=== PATIENT | female | born 1965 | race Caucasian/White ===

== ENCOUNTER 2022-03-24 12:39 | Outpatient (CLI) | payer BC, SELFPAY ==
--- NOTE | 2022-03-24 13:00 | MR_ITS ---
[address] [address] Phone:?[phone] Fax:?[phone] Referring Physician Information: Brian Bennett M.D. [id number] [facility] [facility] [address] Phone:?[phone] Fax:?[phone] Patient:Cain Walker D.O.B:?1965 Sex:?Female Phone:?[phone] [facility] MRN:?[id number] Exam Date:?03/24/2022 ? EXAM: MRI OF THE RIGHT KNEE CLINICAL INFORMATION: The patient is a 56-year-old with right knee pain. Evaluate for medial meniscal tear. PRIOR SURGERY: The patient has a history of prior surgery to the region. COMPARISON STUDIES: There are no prior studies available for comparison. TECHNICAL INFORMATION: Imaging was performed on a high-field, 1.5 Yi MR scanner. Axial proton-density and axial fat-suppressed T2 imaging of the right knee was performed in addition to coronal proton-density, T2, and STIR imaging. Sagittal proton-density and sagittal fat-suppressed T2 imaging was also produced. FINDINGS: Articular/Extraarticular collections: Effusion: Moderate. Popliteal cyst: Small to moderate, seen on sagittal series 6 images 26 and 24. Loose bodies: No well-defined intra-articular loose bodies are present. Subcutaneous and extraarticular soft tissues: Nonspecific subcutaneous soft tissue edema and/or hemorrhage can be seen along the anterior aspect of the knee on sagittal series 6 image 16. Osseous structures: Cortical irregularity can be seen along the articular surfaces of the medial femoral condyle and medial tibial plateau with broad-based areas of subcortical edema along the articular surfaces. The findings are in keeping with the chondromalacia and chondral loss described below. Spurring along the medial margins of the medial joint compartment can be seen and the findings are in keeping with osteoarthritic change. Additional mild reactive bony changes along the articular surfaces of the patella can be seen, also in keeping with chondromalacia and chondral loss described below. No other bony abnormalities about the knee are identified. Ligamentous structures: ACL: Intact and normal in appearance. PCL: Intact and normal in appearance. MCL: Intact and normal in appearance. LCL: Intact and normal in appearance. Posterolateral corner: Intact and normal in appearance. Posteromedial corner: No posteromedial corner soft tissue injury. Semimembranosus and pes anserine tendons demonstrate no tendinopathy or associated bursitis. Extensor mechanism/Patellar retinacular structures: Patellar tendon: Intact, without tendinopathy. Quadriceps tendon: Intact, without tendinopathy. Retinacula: The medial and lateral retinacula are intact. The medial patellofemoral ligament is intact. Medial compartment: Medial meniscus: Degeneration, fraying, and irregularity of the posterior horn of the medial meniscus can be seen. No definite areas of more well-defined tearing of the medial meniscus are noted. There is no evidence for parameniscal cyst formation. No meniscocapsular separation injury is present. Medial femoral condyle: Full-thickness and near full-thickness chondral loss can be seen along the weightbearing surfaces of the medial femoral condyle on sagittal series 5 image 22 and on coronal series 7 image 18. The area of chondral loss measures 32 mm in anteroposterior dimension and 25 mm in mediolateral dimension. Underlying bony changes are seen. Medial tibial plateau: Full-thickness and near full-thickness chondral loss can be seen along the medial and anterior weightbearing surfaces of the medial tibial plateau on coronal series 7 image 18 and on sagittal series 5 image 23. The area measures 25 mm in anteroposterior dimension and 18 mm in mediolateral dimension. Underlying bony changes are present. Lateral compartment: Lateral meniscus: No evidence for lateral meniscal tearing is present. No evidence for parameniscal cyst formation can be seen. Lateral femoral condyle: No chondromalacia, chondral defect, or osteochondral abnormality. Lateral tibial plateau: No chondromalacia, chondral defect, or osteochondral abnormality. Patellofemoral compartment: Patella: Full-thickness and near full-thickness chondral loss can be seen involving the patellar apex and medial patellar facet on axial series 3 image 10, measuring 18 mm in greatest dimension. Mild underlying bony changes are seen. No chondral injuries along the lateral patellar facet are noted. Trochlea: Chondromalacia and chondral thinning along the articular surfaces of the femoral trochlea can be seen. Neurovascular: No definite neurovascular abnormalities are seen. CONCLUSION: 1. Osteoarthritic changes of the medial joint compartment with full-thickness and near full-thickness chondral loss and underlying bony change. Additional chondromalacia and chondral loss along the articular surfaces of the patellofemoral articulation can be seen. 2. Degeneration and fraying of the posterior horn of the medial meniscus. No well-defined medial or lateral meniscal tearing is identified. 3. The cruciate and collateral ligaments appear intact. 4. Moderate knee joint effusion and [id number] popliteal cyst. [facility] Electronically signed on 03/24/2022 4:11:00 PM by Armin Samuels M.D.
== END 2022-03-24 12:40 | disposition home or self-care (01) ==
LOC: MRI 12:40
PROVIDERS: Visit Provider Orthopaedic Surgery Sports Medicine
DX: M25.561 Pain in right knee (principal); M17.11 Unilateral primary osteoarthritis, right knee; M22.41 Chondromalacia patellae, right knee; M25.461 Effusion, right knee; M71.21 Synovial cyst of popliteal space [Baker], right knee
CPT/HCPCS: 73721

== ENCOUNTER 2022-04-13 07:06 | Day surgery (SDC) | payer BC, SELFPAY ==
[2022-04-13] VITALS (26 sets, daily range): BP systolic 99–187; BP diastolic 57–120; PULSE 49–79; RESP 16–20; TEMP 35.8–37; O2SAT 92–100; BMI 38.6
[2022-04-13] MEDS: LACTATED RINGERS 1000 ML 1,000 ML 100 ML IV (08:30)
[2022-04-13] MEDS: ACETAMINOPHEN 500 MG TABLET 1000 MG PO ×2 (08:40→17:43)
[2022-04-13] MEDS: CELECOXIB 200 MG CAPSULE PO ×2 (08:40→21:05)
[2022-04-13] MEDS: OXYCODONE (CR) 10 MG TAB.ER.12H PO (08:40)
[2022-04-13] MEDS: ETHYL CHLORIDE 1 APPLICATION 1 APPLIC TOPICAL (08:42)
[2022-04-13] MEDS: SODIUM CHLORIDE 0.9 % (FLUSH) 10 ML SYRINGE IVF (08:42)
[2022-04-13] MEDS: MIDAZOLAM HCL 1 MG/ML inj IVP (08:48)
[2022-04-13] MEDS: fentaNYL 100 MCG/2 ML inj IVP (08:48)
--- NOTE | 2022-04-13 08:59 | SUR.PREOP ---
TIME?OUT:?0845, right knee PT/RN/MDA?VERIFICATION?OF?SURGICAL?SITE,?PROCEDURE,?AND?CONSENT OBTAINED?PRIOR?TO?INVASIVE?PROCEDURE.
--- NOTE | 2022-04-13 09:00 | W.PM.NB ---
Nerve Block Nerve Block Time Seen by Provider: 09:00 Date Seen: 04/13/22 Type of block requested by surgeon for post-operative analgesia: adductor canal Time out performed: Yes Verification of patient name: Yes Verification of date of : Yes Site marking: site marked Name of person performing procedure: Ayo Oconnell, if any: [place] Continuous monitoring Was continuous monitoring of O2 sat, B/P, registered nurse cardiac, recorded every 15 minutes?: Yes Procedure Checklist: sterile prep, needles and gloves Ultrasound guided. Images saved: Yes Medications given in 5ml increments after negative aspiration: Ropivicaine %: 0.5 mL: 20 Needle gauge: 20 Decadron (mg): 10 Precedex (mcg): 25 Patient tolerated procedure well: Yes Additional comments: Needle noted adjacent to nerve Block Charges Block Charge (with Pro Fee): Femoral Nerve Use of Ultrasound Machine for Block: Yes- US Guidance/pain block
--- NOTE | 2022-04-13 09:00 | W.PM.NB ---
Nerve Block Nerve Block Time Seen by Provider: 09:00 Date Seen: 04/13/22 Type of block requested by surgeon for post-operative analgesia: geniculars Side: right Time out performed: Yes Verification of patient name: Yes Verification of date of : Yes Site marking: site marked Name of person performing procedure: Ayo Continuous monitoring Was continuous monitoring of O2 sat, B/P, cardiac cath technician, recorded every 15 minutes?: Yes Procedure Checklist: sterile prep, needles and gloves Medications given in 5ml increments after negative aspiration: Ropivicaine %: 0.5 mL: 9 Needle gauge: 25 Patient tolerated procedure well: Yes Block Charges Block Charge (with Pro Fee): Genicular Nerve Block Use of Ultrasound Machine for Block: No
--- NOTE | 2022-04-13 09:37 | CRLHL7_ITS ---
For Patients: As a result of the Cures Act, medical imaging exams and procedure reports are released immediately into your electronic medical record. You may view this report before your referring provider. If you have questions, please contact your health care provider. INDICATION: Postoperative total knee arthroplasty, Post operative total knee arthroplasty TECHNIQUE: Knee radiograph 2 views right COMPARISON: None FINDINGS: Bone: No acute fractures or aggressive bone lesions are identified. Joint: The patient is status post a total knee arthroplasty with patellar resurfacing. No significant knee effusion is seen. Soft tissue: Anterior skin, subcutaneous gas and joint gas are present from recent surgery. No radiopaque foreign bodies are seen. IMPRESSION: 1. There is an unremarkable postoperative appearance of the knee arthroplasty. Dictated by: Orion Marquez MD @ 04/13/2022 13:43:43 (Electronically Signed)
[2022-04-13] MEDS: TRANEXAMIC ACID 100 MG/ML INJ 1000 MG IV (10:19)
[2022-04-13] MEDS: CEFAZOLIN 2 GM in 0.9 % SODIUM CHLORIDE Mini-bag 100 ML IVPB ×2 (10:21→17:04)
--- NOTE | 2022-04-13 10:46 | SUR.OPER ---
PATIENT QUESTIONS ANSWERED SATISFACTORILY PREOPERATIVELY.? PATIENT BROUGHT TO OR #3 PER CART FROM BLOCK ROOM.? Patient positioned supine on OR #3 bed.? The perioperative?team supported arms bilaterally on arm boards.? Final approval of positioning by surgeon.?
--- NOTE | 2022-04-13 11:33 | P.ORPRC_ITS ---
Procedure Note Date of procedure: 04/13/22 Procedure: PREOPERATIVE DIAGNOSIS: 1. Right knee osteoarthritis, primary, severe POSTOPERATIVE DIAGNOSIS: 1. Right knee osteoarthritis, primary, severe PROCEDURE: 1. Right total knee arthroplasty-modifier 22 (33% added time/difficulty for this case due to patient's focused elevated body habitus around her lower extremities). While her BMI is 38.6 (less than morbid obesity), it is primarily focused from her waist down. The size of her knee would otherwise be consistent with someone who has BMI of 45 or greater. This added time, required deeper retractors, and more assistance to help hold retractors. SURGEON: Brian Bennett MD. KITCHEN OPERATOR: Ahsan FLORES - Of note, a skilled family law legal assistant was critical for this case to aid in patient positioning, tissue retraction, limb manipulation/positioning, and closure. ANESTHESIA: Spinal anesthetic IMPLANTS: DePuy J&J all cemented TKA - Attune PS femur size 5 regular, size for tibia, 5 poly spacer, 35 mm patella TOURNIQUET: 105 minutes at 300 torr EBL: 50 ml COMPLICATIONS: None evident INDICATIONS: The patient is a pleasant 56-year-old female who has experienced severe right knee pain and difficulty bearing weight. Workup included x-rays which revealed severe osteoarthrosis in the knee. Given the deformity, the dysfunction, and the pain, as well as the failure of nonoperative management, recommendation was made for surgery. FINDINGS: Large effusion upon entering the joint. Full-thickness chondral loss broadly throughout the medial compartment and significant through the patellofemoral compartment. While the lateral compartment had lesser chondromalacia, it was still significant. Degenerative meniscal pathology noted as well. No appreciable loose bodies. DESCRIPTION OF PROCEDURE: Following a thorough discussion of risks, benefits, and alternatives consent was obtained and the right knee was marked. The patient was brought to the operating room and placed supine on the operating table. Induction of anesthesia was undertaken. 2 g IV Ancef and 1 g tranexamic acid was administered within 1 hr of incision preoperatively. Proper time-out was performed identifying proper patient, site, procedure. The operative extremity was prepped and draped in the appropriate sterile fashion using ChloraPrep after the patient was positioned supine with all bony prominences well padded. A longitudinal, anterior, midline skin incision was made starting approximately 3cm proximal to the superior pole of the patella and advanced distal to the tibial tubercle. A median parapatellar arthrotomy was created. A medial subperiosteal sleeve was created with knife, richmond elevator and curved osteotome. The retropatellar fatpad was resected and the synovium in the suprapatellar pouch excised to visualize the anterior femoral cortex. Femoral preparation was performed via an intramedullary guide. Step drill allowed access into the femoral canal. The distal cutting guide was placed with 5? of valgus and 10 mm cut on the distal femur. Femur was sized using a posterior referencing guide in 3? of external rotation. This found have a best fit with the sizing noted above. The 4 in 1 cutting block was then placed, and the distal femur shaped accordingly. The box cut was then created and the trial implant inserted to confirm appropriate fit. We turned our attention to the proximal tibia. Extramedullary guide was utilized for cutting with the goal of being 90 degree cut from the mechanical axis of the tibia in the varus/valgus plane utilizing tibial crest as the primary alignment. Initially a 2 mm resection was performed from the medial tibial plateau. Ultimately, balancing was achieved in both flexion and extension in both varus and valgus. The knee was able to achieve full extension as well comfortably. The patella was initially measured and found have a thickness of 22 mm. It was resected back to approximately 14 mm. It was sized to be a best fit with as noted above. This was drilled, trial placed. All tri als were placed and found to have an excellent stability and balance. At this stage, trial implants were removed, the knee was thoroughly irrigated with normal saline, and the cement was mixed. After irrigation, the knee was thoroughly dried, and cement placed, with the real tibial and femoral implants placed along with the patella. Trial poly spacer was placed and confirmed to have excellent range of motion and full extension, and the real poly spacer opened and inserted. All extra cement was removed, and a 3 min Betadine soak performed. Finally, a final irrigation round with normal saline was performed. Closure performed with 0 Vicryl and #0 Stratafix for the quad tendon/retinaculum. 2-0 Vicryl for the subcutaneous and 4-0 Stratafix for subcuticular closure. Dressings were applied and the patient was awoken from anesthesia after the tourniquet deflated and transferred the PACU in stable condition. A skilled family law legal assistant was critical for this case to aid in patient positioning, ti ssue retraction, bone exposure, limb manipulation/positioning, patient safety, and closure. Again, this case is worthy of a modifier 22 (33% added time/difficulty for this case due to patient's focused elevated body habitus around her lower extremities). While her BMI is 38.6 (less than morbid obesity), it is primarily focused from her waist down. The size of her knee would otherwise be consistent with someone who has BMI of 45 or greater. This added time, required deeper retractors, and more assistance to help hold retractors. PLAN: 1. Weight bear as tolerated operative extremity. 2. 23 hr perioperative antibiotics. 3. Ice. 4. PT/OT consults for ambulation assistance/mobility education. 5. Social work consult for discharge planning. 6. DVT prophylaxis with at SCDs, Alo Aranae, and aspirin twice daily.
--- NOTE | 2022-04-13 12:14 | W.ANESCHARGE ---
Anesthesia Charges Start Date/Time Anesthesia Start Date: 04/13/22 Anesthesia Start Time: 10:15 Stop Date/Time Anesthesia Stop Date: 04/13/22 Anesthesia Stop Time: 12:11 Summary Emergency: No
--- NOTE | 2022-04-13 12:46 | W.ANESCHARGE ---
Anesthesia Charges Start Date/Time Anesthesia Start Date: 04/13/22 Anesthesia Start Time: 10:15 Stop Date/Time Anesthesia Stop Date: 04/13/22 Anesthesia Stop Time: 12:11 Summary Emergency: No
--- NOTE | 2022-04-13 14:42 | PM.IMCN1 ---
Date of Consult Consult date: 04/13/22 Requesting Physician: Orthopedics Primary Care Provider: Not a Local Provider Consult Narrative Narrative: Faby Walker is a 56 year old female underwent an elective right knee arthroplasty by Dr. Bennett today for severe osteoarthritis. She is doing well postoperatively, and is noting some increase in pain in the superior right knee as the block wears off. She has no other complaints. Her , Keith, is in the room with her. Review of Systems Status of ROS: Reports: 6 or more systems reviewed and unremarkable except as noted in History and below PFSH [facility] Medical History (Updated 04/13/22 @ 15:45 by Catherine Younger MD) Acute medial meniscal injury of right knee Acute medial meniscus tear of right knee Benign brain tumor Contusion of bone Degenerative arthritis of lumbar spine Normal ECG Osteoarthritis of left hip Osteoarthritis of right knee Pruritic rash Surgical History (Updated 04/13/22 @ 15:15 by Catherine Younger MD) History of appendectomy History of foot surgery History of knee surgery Hx of colonoscopy Status post total right knee replacement Family History (Updated 04/13/22 @ 15:11 by Catherine Younger MD) Father Esophageal cancer Brother Cerebral malaria Maternal Grandmother Glaucoma Maternal Grandfather Lung cancer Paternal Grandmother Stomach cancer Paternal Grandfather Esophageal cancer Social History (Updated 04/13/22 @ 15:13 by Catherine Younger MD) Narrative: . computer lab para professional. Lifelong nonsmoker. Rare EtOH - twice a year. Denies recreational drug use. Smoking Status: Never smoker Do you use any of these nicotine containing products: None How often do you have a drink containing alcohol: never AUDIT-C Alcohol total score: 0 Non-prescribed substance use: denies use Caffeine: Yes (coffee, 3 cups/day) Meds Home Medications and Allergies Home Medications Medication Instructions Recorded Confirmed Type cholecalciferol (vitamin D3) 25 25 mcg PO DAILY 04/10/22 04/13/22 History mcg (1,000 unit) capsule loratadine 10 mg tablet (Claritin) 10 mg PO DAILY 04/10/22 04/13/22 History magnesium oxide 400 mg PO DAILY 04/10/22 04/13/22 History multivitamin (Daily Multi-Vitamin 1 tab PO DAILY 04/10/22 04/13/22 History tablet) Allergies Allergy/AdvReac Type Severity Reaction Status Date / Time morphine Allergy Hives Verified 04/13/22 07:45 Exam Narrative: Exam Narrative: General: No acute distress. Awake alert oriented x3. Obese. HEENT: Normocephalic atraumatic, pupils equally round and reactive to light and accommodation. Oropharynx clear. Mucous membranes are moist. No JVD. Cardiovascular: Regular rate and rhythm. No murmurs, gallops, or rubs. Chest: No increased work of breathing. Clear to auscultation bilaterally. No crackles or wheezes. Abdomen: Bowel sounds present. Soft, nondistended, nontender. No hepatosplenomegaly or masses. Extremities: Right knee bandage is clean, dry, and intact. There is a mild amount of ecchymosis around the wound visible from under the edges of the bandage. No edema, no cyanosis or clubbing. Skin: No jaundice, no pallor, no rashes. Const: Vital Signs, click to edit/add: Vital Signs - 24 hr 04/13/22 07:54 04/13/22 08:49 04/13/22 09:05 Temperature 98.4 F Pulse Rate 53 L 51 L 57 L Pulse Rate [Right Pulse Oximeter] Respiratory Rate 20 20 20 Blood Pressure 122/75 134/83 125/60 Blood Pressure [Le ft Arm] Pulse Oximetry 100 100 95 Oxygen Delivery Me thod Room Air Nasal Cannula Nasal Cannula Oxygen Flow Rate 3 3 04/13/22 12:10 04/13/22 12:15 04/13/22 12:20 Temperature 97.2 F L Pulse Rate 65 56 L 50 L Pulse Rate [Right Pulse Oximeter] Respiratory Rate 16 16 16 Blood Pressure 99/64 100/91 H 100/87 Blood Pressure [Le ft Arm] Pulse Oximetry 96 96 96 Oxygen Delivery Me thod Room Air Room Air Room Air Oxygen Flow Rate 3 04/13/22 12:25 04/13/22 12:30 04/13/22 12:35 Temperature Pulse Rate 60 55 L 55 L Pulse Rate [Right Pulse Oximeter] Respiratory Rate 16 16 16 Blood Pressure 101/88 99/77 101/79 Blood Pressure [Le ft Arm] Pulse Oximetry 96 96 96 Oxygen Delivery Me thod Room Air Room Air Room Air Oxygen Flow Rate 04/13/22 12:40 04/13/22 12:45 04/13/22 13:10 Temperature 97.3 F L 96.7 F L Pulse Rate 50 L 49 L 56 L Pulse Rate [Right Pulse Oximeter] Respiratory Rate 16 16 Blood Pressure 110/79 120/75 Blood Pressure [Le ft Arm] 122/89 Pulse Oximetry 96 97 Oxygen Delivery Me thod Room Air Room Air Room Air Oxygen Flow Rate 04/13/22 13:17 04/13/22 13:30 04/13/22 13:50 Temperature 96.7 F L 97.1 F L 96.5 F L Pulse Rate Pulse Rate [Right Pulse Oximeter] 55 L 57 L 58 L Respiratory Rate 16 16 16 Blood Pressure Blood Pressure [Le ft Arm] 109/95 H 118/76 107/60 Pulse Oximetry 96 98 97 Oxygen Delivery Me thod Room Air Room Air Room Air Oxygen Flow Rate 04/13/22 14:00 04/13/22 14:30 Temperature 96.6 F L 96.6 F L Pulse Rate Pulse Rate [Right Pulse Oximeter] 55 L 57 L Respiratory Rate 16 16 Blood Pressure Blood Pressure [Le ft Arm] 133/76 139/89 Pulse Oximetry 98 99 Oxygen Delivery Me thod Room Air Room Air Oxygen Flow Rate 96.9 Imaging XR - knee: Attestation: I have reviewed the pertinent imaging results. Radiologist's impression: Ordering Physician: Brian Bennett M.D. Date of Service: 04/13/22 Procedure(s): XR knee RT 2V Accession Number(s): [id number] cc: Brian Bennett M.D.; Provider,Not a Local ~ For Patients: As a result of the Cures Act, medical imaging exams and procedure reports are released immediately into your electronic medical record. You may view this report before your referring provider. If you have questions, please contact your health care provider. INDICATION: Postoperative total knee arthroplasty, Post operative total knee arthroplasty TECHNIQUE: Knee radiograph 2 views right COMPARISON: None FINDINGS: Bone: No acute fractures or aggressive bone lesions are identified. Joint: The patient is status post a total knee arthroplasty with patellar resurfacing. No significant knee effusion is seen. Soft tissue: Anterior skin, subcutaneous gas and joint gas are present from recent surgery. No radiopaque foreign bodies are seen. IMPRESSION: 1. There is an unremarkable postoperative appearance of the knee arthroplasty. Dictated by: Orion Marquez MD @ 04/13/2022 13:43:43 (Electronically Signed) Assessment and Plan Assessment and plan (1) Osteoarthritis of right knee: Problem comment: Severe medial and patellofemoral compartment, mild-moderate lateral compartment Status: Acute (2) Status post total right knee replacement: Problem comment: 04/13/2022 Dr. Bennett Status: Acute Assessment and Plan: Doing well. Cares per ortho. Oral pain medications. Anticipate home with tomorrow morning after therapies. Plan VTE prophylaxis with BID aspirin, TEDs hose, and SCDs.
[2022-04-13] MEDS: OXYCODONE 5 MG TABLET PO ×3 (15:23→19:41)
[2022-04-13] MEDS: HYDROmorphone 0.5 mg/0.5 ml inj IVP (16:08)
[2022-04-13] MEDS: ONDANSETRON 2 MG/ML inj 4 MG IVP (16:13)
--- NOTE | 2022-04-13 19:31 | PC.NURSE ---
End of Shift: Patient pleasant and cooperative. Patient vitally stable, lung clear, BS WNL, IV SL and intact. Patient 1 assist, walker, gb. Patient has rated pain at most 8/10, dilauded 0.5 mg given once, and 10 mg of oxy given x2. Patient did experience some nausea, zophran given once. Right knee wound C/D/I. Crycuff and teds applied. Patient tolerating regular diet and urinated 600.
[2022-04-13] MEDS: ASPIRIN 81 MG TABLET EC PO (21:05)
[2022-04-14] MEDS: OXYCODONE 5 MG TABLET PO ×3 (00:04→10:02)
[2022-04-14] MEDS: CEFAZOLIN 2 GM in 0.9 % SODIUM CHLORIDE Mini-bag 100 ML IVPB ×2 (00:05→08:49)
[2022-04-14] MEDS: ACETAMINOPHEN 500 MG TABLET 1000 MG PO ×3 (00:05→12:04)
[2022-04-14 03:00] VITALS: BP 153/74; PULSE 78; RESP 16; TEMP 36.9; O2SAT 96
[2022-04-14 06:49] LABS: Basophils Percent Auto 0.1 % (0.0-3.0); Hematocrit 33.8 % (33.0-51.0); Hemoglobin* 11.2 gm/dL (12.0-16.0); Immature Granulocytes Abs Auto 0.03 K/uL (0.00-0.30); Lymphocytes Percent Auto 16.1 % (20-44); Mean Corpuscular HGB Conc 33 gm/dL (32-36); Mean Corpuscular Hemoglobin 31 pg (26-34); Mean Corpuscular Volume 95 fL (80-100); Monocytes Percent Auto 5.7 % (0.0-11.0); Neutrophils Percent Auto 77.9 % (42.0-72.0); Platelet Count* 354 K/uL (140-440); RDW Coefficient of Variation % 13.5 % (11.5-15.5); Red Blood Count 3.57 m/uL (4.00-5.20); White Blood Count* 13.24 K/uL (4.50-11.00)
[2022-04-14 06:56] LABS: Slide Review Reflex No
[2022-04-14 07:00] VITALS: BP 145/79; PULSE 78; RESP 18; TEMP 36.8; O2SAT 97
[2022-04-14 07:06] LABS: Potassium* 4.3 mmol/L (3.6-5.1); Sodium* 135 mmol/L (135-149)
[2022-04-14 07:09] LABS: Blood Urea Nitrogen* 17 mg/dL (7-30); Creatinine* 0.7 mg/dL (0.5-1.5); Est. Creatinine Clearance* 79.79; Estimated Glomerular Filt Rate 101 ml/min
--- NOTE | 2022-04-14 08:38 | PM.ORPN ---
Subjective Subjective Date Seen: 04/14/22 Principal diagnosis: Status postop day 1 right total knee arthroplasty Interval history: Patient reports doing well. No acute events over night. Reports some mild nausea without vomiting. Reports and itch over the wound. Pain managed with scheduled /PRN medications and ice. DVT prophylaxis 81 mg aspirin by mouth twice daily, bilateral knee high Alo stockings, and SCDs. Was experiencing some lightheadedness medially after surgery when up, but this has since resolved when going to the bathroom. Denies fevers, chills, aches, N/V, CP, SOB/HORAN, tachycardia. Ortho Exam Narrative Exam Narrative: -Patient appears comfortable; no apparent acute distress -Alert and oriented times 3 -Operative knee moderately swollen; soft tissues supple; no ecchymosis; no erythematous streaking Warmth appropriate -Surgical dressing clean, dry, intact; no drainage -Bilateral calfs soft; no significant swelling, edema, tenderness, erythema, discoloration, warmth, or palpable cords -2+ DP/PT pulses, intact dermatomes and myotomes distally (5/5 strength) Const Vital Signs, click to edit/add: Vital Signs - 24 hr 04/13/22 08:49 04/13/22 09:05 04/13/22 12:10 Temperature 97.2 F L Pulse Rate 51 L 57 L 65 Pulse Rate [Right Pulse Oximeter] Respiratory Rate 20 20 16 Blood Pressure 134/83 125/60 99/64 Blood Pressure [Left Arm] Blood Pressure [Right Arm] Pulse Oximetry 100 95 96 Oxygen Delivery Method Nasal Cannula Nasal Cannula Room Air Oxygen Flow Rate 3 3 04/13/22 12:15 04/13/22 12:20 04/13/22 12:25 Temperature Pulse Rate 56 L 50 L 60 Pulse Rate [Right Pulse Oximeter] Respiratory Rate 16 16 16 Blood Pressure 100/91 H 100/87 101/88 Blood Pressure [Left Arm] Blood Pressure [Right Arm] Pulse Oximetry 96 96 96 Oxygen Delivery Method Room Air Room Air Room Air Oxygen Flow Rate 3 04/13/22 12:30 04/13/22 12:35 04/13/22 12:40 Temperature 97.3 F L Pulse Rate 55 L 55 L 50 L Pulse Rate [Right Pulse Oximeter] Respiratory Rate 16 16 16 Blood Pressure 99/77 101/79 110/79 Blood Pressure [Left Arm] Blood Pressure [Right Arm] Pulse Oximetry 96 96 96 Oxygen Delivery Method Room Air Room Air Room Air Oxygen Flow Rate 04/13/22 12:45 04/13/22 13:10 04/13/22 13:17 Temperature 96.7 F L 96.7 F L Pulse Rate 49 L 56 L Pulse Rate [Right Pulse Oximeter] 55 L Respiratory Rate 16 16 Blood Pressure 120/75 Blood Pressure [Left Arm] 122/89 109/95 H Blood Pressure [Right Arm] Pulse Oximetry 97 96 Oxygen Delivery Method Room Air Room Air Room Air Oxygen Flow Rate 04/13/22 13:30 04/13/22 13:50 04/13/22 14:00 Temperature 97.1 F L 96.5 F L 96.6 F L Pulse Rate Pulse Rate [Right Pulse Oximeter] 57 L 58 L 55 L Respiratory Rate 16 16 16 Blood Pressure Blood Pressure [Left Arm] 118/76 107/60 133/76 Blood Pressure [Right Arm] Pulse Oximetry 98 97 98 Oxygen Delivery Method Room Air Room Air Room Air Oxygen Flow Rate 04/13/22 14:30 04/13/22 15:26 04/13/22 16:00 Temperature 96.6 F L 97.5 F L 97.7 F Pulse Rate Pulse Rate [Right Pulse Oximeter] 57 L 71 57 L Respiratory Rate 16 16 16 Blood Pressure Blood Pressure [Left Arm] 139/89 143/57 H 153/74 H Blood Pressure [Right Arm] Pulse Oximetry 99 98 92 Oxygen Delivery Method Room Air Room Air Room Air Oxygen Flow Rate 96.9 04/13/22 16:47 04/13/22 17:00 04/13/22 18:00 Temperature 98.3 F 98.6 F Pulse Rate Pulse Rate [Right Pulse Oximeter] 56 L 73 Respiratory Rate 16 16 16 Blood Pressure Blood Pressure [Left Arm] Blood Pressure [Right Arm] 153/101 H 182/120 H Pulse Oximetry 96 95 Oxygen Delivery Method Room Air Room Air Oxygen Flow Rate 04/13/22 19:00 04/13/22 19:45 04/13/22 22:43 Temperature 98.1 F 98.1 F Pulse Rate Pulse Rate [Right Pulse Oximeter] 73 67 Respiratory Rate 16 16 16 Blood Pressure Blood Pressure [Left Arm] 156/74 H Blood Pressure [Right Arm] 187/87 H Pulse Oximetry 95 95 Oxygen Delivery Method Room Air Room Air Oxygen Flow Rate 04/13/22 23:00 04/14/22 03:00 04/14/22 07:00 Temperature 98.3 F 98.4 F Pulse Rate Pulse Rate [Right Pulse Oximeter] 79 78 78 Respiratory Rate 16 16 18 Blood Pressure Blood Pressure [Left Arm] Blood Pressure [Right Arm] 153/80 H 153/74 H Pulse Oximetry 95 96 Oxygen Delivery Method Room Air Room Air Oxygen Flow Rate 04/14/22 07:00 Temperature 98.3 F Pulse Rate Pulse Rate [Right Pulse Oximeter] 78 Respiratory Rate 18 Blood Pressure Blood Pressure [Left Arm] Blood Pressure [Right Arm] 145/79 H Pulse Oximetry 97 Oxygen Delivery Method Room Air Oxygen Flow Rate Assessment and Plan Assessment and plan (1) Osteoarthritis of right knee: Problem details: Severe medial and patellofemoral compartment, mild-moderate lateral compartment Status: Acute (2) Status post total right knee replacement: Problem details: 04/13/2022 Dr. Bennett Status: Acute Plan - Complete 23 hour perioperative antibiotics. - PT/OT consult for education and assistance. - Social work consult for discharge planning - Prescribed analgesics as needed - DVT prophylaxis: 81 mg aspirin by mouth twice daily, bilateral knee high Alo Hose stockings and SCDs - Anticipation is for discharge to home with spouse 04/14/2022 once patient remains medically stable, pain is controlled, and they are safe with mobilization.
--- NOTE | 2022-04-14 08:41 | PM.DS1 ---
DS: Providers Provider Date Seen: 04/14/22 Date of admission: med/surg recovery 04/13/22 Primary care physician: Not a Local Provider Consults: 04/13/22 12:55 Consult to Occupational Therapy [CONS] Routine Comment: Reason(s) for OT Consult:: ADLs Prior to Discharge Any Restrictions?:: See Comment Comment: See nursing activity order for any restrictions. Consult to Physical Therapy [CONS] Routine Comment: Ambulate in the [place] today. Reason(s) for PT Consult:: TKA TX Protocol POD#0 Any Restrictions?:: See Comment Comment: See nursing activity order for any restrictions. Consult to Physician [CONS] Routine Comment: Consulting Provider: Hospitalists Has provider been notified: No Consult to Bench Tool Maker [CONS] Routine Comment: Reason for Consult:: Discharge Planning Needs Attending Physician on discharge: Brian Bennett MD Date of Discharge: 04/14/22 DS: Diagnosis Discharge Diagnosis (1) Osteoarthritis of right knee: Status: Acute Problem details: Severe medial and patellofemoral compartment, mild-moderate lateral compartment (2) Status post total right knee replacement: Status: Acute Problem details: 04/13/2022 Dr. Bennett DS: Summary Hospital Course Hospital Course: The patient has a history of right knee osteoarthritis, primary, severe. After appropriate preoperative evaluation, the patient underwent right total knee arthroplasty. Postoperatively given anticoagulation for deep vein thrombosis prophylaxis. They progressed to PT/OT and were felt ready and prepared for discharged to home with appropriate pain medication and anticoagulation medications. Status at Discharge Functional status at discharge: uses cane/walker Overall status at discharge: patient is progressing back to baseline Time Spent with Patient Time attestation: Total time spent providing and/or coordinating discharge services: Time spent: Less than 30 minutes Exam Const: Vital Signs, click to edit/add: Vital Signs - 24 hr 04/13/22 08:49 04/13/22 09:05 04/13/22 12:10 Temperature 97.2 F L Pulse Rate 51 L 57 L 65 Pulse Rate [Right Pulse Oximeter] Respiratory Rate 20 20 16 Blood Pressure 134/83 125/60 99/64 Blood Pressure [Le ft Arm] Blood Pressure [Ri ght Arm] Pulse Oximetry 100 95 96 Oxygen Delivery Me thod Nasal Cannula Nasal Cannula Room Air Oxygen Flow Rate 3 3 04/13/22 12:15 04/13/22 12:20 04/13/22 12:25 Temperature Pulse Rate 56 L 50 L 60 Pulse Rate [Right Pulse Oximeter] Respiratory Rate 16 16 16 Blood Pressure 100/91 H 100/87 101/88 Blood Pressure [Le ft Arm] Blood Pressure [Ri ght Arm] Pulse Oximetry 96 96 96 Oxygen Delivery Me thod Room Air Room Air Room Air Oxygen Flow Rate 3 04/13/22 12:30 04/13/22 12:35 04/13/22 12:40 Temperature 97.3 F L Pulse Rate 55 L 55 L 50 L Pulse Rate [Right Pulse Oximeter] Respiratory Rate 16 16 16 Blood Pressure 99/77 101/79 110/79 Blood Pressure [Le ft Arm] Blood Pressure [Ri ght Arm] Pulse Oximetry 96 96 96 Oxygen Delivery Me thod Room Air Room Air Room Air Oxygen Flow Rate 04/13/22 12:45 04/13/22 13:10 04/13/22 13:17 Temperature 96.7 F L 96.7 F L Pulse Rate 49 L 56 L Pulse Rate [Right Pulse Oximeter] 55 L Respiratory Rate 16 16 Blood Pressure 120/75 Blood Pressure [Le ft Arm] 122/89 109/95 H Blood Pressure [Ri ght Arm] Pulse Oximetry 97 96 Oxygen Delivery Me thod Room Air Room Air Room Air Oxygen Flow Rate 04/13/22 13:30 04/13/22 13:50 04/13/22 14:00 Temperature 97.1 F L 96.5 F L 96.6 F L Pulse Rate Pulse Rate [Right Pulse Oximeter] 57 L 58 L 55 L Respiratory Rate 16 16 16 Blood Pressure Blood Pressure [Le ft Arm] 118/76 107/60 133/76 Blood Pressure [Ri ght Arm] Pulse Oximetry 98 97 98 Oxygen Delivery Me thod Room Air Room Air Room Air Oxygen Flow Rate 04/13/22 14:30 04/13/22 15:26 04/13/22 16:00 Temperature 96.6 F L 97.5 F L 97.7 F Pulse Rate Pulse Rate [Right Pulse Oximeter] 57 L 71 57 L Respiratory Rate 16 16 16 Blood Pressure Blood Pressure [Le ft Arm] 139/89 143/57 H 153/74 H Blood Pressure [Ri ght Arm] Pulse Oximetry 99 98 92 Oxygen Delivery Me thod Room Air Room Air Room Air Oxygen Flow Rate 96.9 04/13/22 16:47 04/13/22 17:00 04/13/22 18:00 Temperature 98.3 F 98.6 F Pulse Rate Pulse Rate [Right Pulse Oximeter] 56 L 73 Respiratory Rate 16 16 16 Blood Pressure Blood Pressure [Le ft Arm] Blood Pressure [Ri ght Arm] 153/101 H 182/120 H Pulse Oximetry 96 95 Oxygen Delivery Me thod Room Air Room Air Oxygen Flow Rate 04/13/22 19:00 04/13/22 19:45 04/13/22 22:43 Temperature 98.1 F 98.1 F Pulse Rate Pulse Rate [Right Pulse Oximeter] 73 67 Respiratory Rate 16 16 16 Blood Pressure Blood Pressure [Le ft Arm] 156/74 H Blood Pressure [Ri ght Arm] 187/87 H Pulse Oximetry 95 95 Oxygen Delivery Me thod Room Air Room Air Oxygen Flow Rate 04/13/22 23:00 04/14/22 03:00 04/14/22 07:00 Temperature 98.3 F 98.4 F Pulse Rate Pulse Rate [Right Pulse Oximeter] 79 78 78 Respiratory Rate 16 16 18 Blood Pressure Blood Pressure [Le ft Arm] Blood Pressure [Ri ght Arm] 153/80 H 153/74 H Pulse Oximetry 95 96 Oxygen Delivery Me thod Room Air Room Air Oxygen Flow Rate 04/14/22 07:00 Temperature 98.3 F Pulse Rate Pulse Rate [Right Pulse Oximeter] 78 Respiratory Rate 18 Blood Pressure Blood Pressure [Le ft Arm] Blood Pressure [Ri ght Arm] 145/79 H Pulse Oximetry 97 Oxygen Delivery Me thod Room Air Oxygen Flow Rate DS: Data Data Completed and Pending Labs on day of discharge: Labs from last 24 hours 04/14/22 04/14/22 06:31 06:31 WBC 13.24 H RBC 3.57 L Hgb 11.2 L Hct 33.8 MCV 95 MCH 31 MCHC 33 RDW Coeff of Phu 13.5 Plt Count 354 Neut % (Auto) 77.9 H Lymph % (Auto) 16.1 L [place] % (Auto) 5.7 Eos % (Auto) 0.0 Baso % (Auto) 0.1 Neut # (Auto) 10.30 H Lymph # (Auto) 2.10 [place] # (Auto) 0.80 Eos # (Auto) 0.00 Baso # (Auto) 0.00 Abs Immat Gran (auto) 0.03 Sodium 135 Potassium 4.3 BUN 17 Creatinine 0.7 Estimated Creat Clear 79.79 Estimated GFR 101 Discharge Plan Discharge Disposition: Home, Self-Care Discharging Surgeon: Brian Bennett Follow-Up Appointment: 1 week postop with [facility] Prescriptions: New sennosides-docusate sodium [Senna-S] 8.6-50 mg tablet 1 - 4 tab-cap PO BID PRN (Reason: constipation) Qty: 60 0RF Rx Instructions: Hold medication if experiencing loose stools. aspirin 81 mg tablet,delayed release (DR/EC) 81 mg PO BID Qty: 60 0RF Rx Instructions: Medication to help prevent blood clots postoperatively; take TWICE daily. celecoxib 100 mg capsule 100 mg PO BID Qty: 60 0RF acetaminophen 500 mg capsule 500 - 1,000 mg PO Q6H MDD 4000mg PRNQty: 100 0RF oxycodone 5 mg tablet 2.5 - 5 mg PO Q4-6H MDD 6 PRN (Reason: pain) Qty: 42 0RF Rx Instructions: Take as needed for postop pain: 2.5mg mild pain, 5mg moderate-severe pain; wean as tolerated. Continued cholecalciferol (vitamin D3) 25 mcg (1,000 unit) capsule 25 mcg PO DAILY loratadine [Claritin] 10 mg tablet 10 mg PO DAILY magnesium oxide 400 mg magnesium capsule 400 mg PO DAILY multivitamin [Daily Multi-Vitamin] Tablet 1 tab PO DAILY Activity Level: Activity as Tolerated, Weight Bearing as Tolerated, Use Cane and Use Walker Activity Detail: Wound: ?Do not remove original dressing; we will remove this at first postop visit in 1 week. Only remove dressing if integrity is in question. ?No immersing wound in water; showering okay; light scrub with your hand and body soap, rinse, dab dry ?Sutures are under the skin, will dissolve; allow surgical glue to come off naturally; do not scrub the wound or apply ointments/lotions ?Call our office with any redness that streaks, excessive drainage from the wound, or wound gapping. Ice/Elevate: ?Ice as needed for swelling and discomfort (cryocuff or ice pack); elevate frequently above the heart CONNIE socks: ?Wear for 1 month, remove for 1 hour 3 times per day ?These are frustrating to take on/off, but are important for blood clot prevention for 1 month after surgery Blood Clot Prevention (DVT): ?Medication: 81 mg aspirin by mouth twice daily (1 month) Driving: ?Do not drive while taking narcotic pain medication ?Anticipate 4-6 weeks no driving if operative leg is driving leg Dental: ?No elective dental work for 6 months post-op. If there is an urgent/emergent dental need, contact our office for an antibiotic prescription. Smoking/Alcohol: ?Do not smoke; do no drink alcohol especially when taking postoperative oral narcotic medication Seek Care from you Primary Care Provider if you experience the following issues in the postoperative phase and beyond: ?Bacterial infections such as: pneumonia, bacterial skin infection (cellulitis), UTI, high fever, chills unrelated to the operative body part - call your primary care physician urgently for treatment in hopes to protect your health and the metal implant. Referrals: ?PT, OT per patient preference - evaluate treat total knee arthroplasty protocol (gait training, ROM, ADLs) Follow up: ?Ortho surgeon follow-up in 6 weeks; repeat radiographs three views operative knee ?PA-C visit in 1 week *If there are any acute concerns regarding your surgery, please call our orthopedic clinic ([phone]) Discharge Diet: Regular Patient Instructions: Surgical Site Infections (DC) Forms: Work/Release Restrictions Follow-up: Provider,Not a Local [Primary Care Provider] - Discharge Orders: Discharge Order (Routine); Ordered 04/14/22 Ordered By: Greg Feldman
[2022-04-14] MEDS: SENNOSIDES 1 TAB TABLET 2 TAB PO (08:51)
[2022-04-14] MEDS: MULTIVITAMIN/MINERALS 1 TABLET 1 TAB PO (08:51)
[2022-04-14] MEDS: ASPIRIN 81 MG TABLET EC PO (08:51)
[2022-04-14] MEDS: LORATADINE 10 MG TABLET PO (08:52)
[2022-04-14] MEDS: CELECOXIB 200 MG CAPSULE PO (08:52)
--- NOTE | 2022-04-14 10:58 | P.DS_ITS ---
DS: Providers Provider Date Seen: 04/14/22 Primary care physician: Not a Local Provider Admitting Clinician: Dr. Zepeda Consults: Physical therapy and occupational therapy Hospitalist team for comanagement of comorbidities Attending Physician on discharge: Brian Bennett MD Date of Discharge: 04/14/22 DS: Diagnosis Discharge Diagnosis (1) Status post total right knee replacement: Status: Acute Problem details: 04/13/2022 Dr. Bennett DS: Summary Hospital Course Hospital Course: 56-year-old female admitted for elective right TKA on 04/13. Faby did well postoperatively and comorbidities remained stable. No changes made to home medications upon discharge. Prophylaxis and pain management per Orthopedic surgery team. Patient will be discharged home with routine follow-up with therapies, orthopedic surgery, and PCP. Time Spent with Patient Time attestation: Total time spent providing and/or coordinating discharge services: Time spent: Less than 30 minutes Exam Narrative: Exam Narrative: Patient is sitting comfortably in bedside chair, speaking in full sentences Breathing is nonlabored Pulse palpates as regular rate and rhythm No concerning skin findings on exposed skin Const: Vital Signs, click to edit/add: Vital Signs - 24 hr 04/13/22 12:10 04/13/22 12:15 04/13/22 12:20 Temperature 97.2 F L Pulse Rate 65 56 L 50 L Pulse Rate [Right Pulse Oximeter] Respiratory Rate 16 16 16 Blood Pressure 99/64 100/91 H 100/87 Blood Pressure [Le ft Arm] Blood Pressure [Ri ght Arm] Pulse Oximetry 96 96 96 Oxygen Delivery Me thod Room Air Room Air Room Air Oxygen Flow Rate 3 04/13/22 12:25 04/13/22 12:30 04/13/22 12:35 Temperature Pulse Rate 60 55 L 55 L Pulse Rate [Right Pulse Oximeter] Respiratory Rate 16 16 16 Blood Pressure 101/88 99/77 101/79 Blood Pressure [Le ft Arm] Blood Pressure [Ri ght Arm] Pulse Oximetry 96 96 96 Oxygen Delivery Me thod Room Air Room Air Room Air Oxygen Flow Rate 04/13/22 12:40 04/13/22 12:45 04/13/22 13:10 Temperature 97.3 F L 96.7 F L Pulse Rate 50 L 49 L 56 L Pulse Rate [Right Pulse Oximeter] Respiratory Rate 16 16 Blood Pressure 110/79 120/75 Blood Pressure [Le ft Arm] 122/89 Blood Pressure [Ri ght Arm] Pulse Oximetry 96 97 Oxygen Delivery Me thod Room Air Room Air Room Air Oxygen Flow Rate 04/13/22 13:17 04/13/22 13:30 04/13/22 13:50 Temperature 96.7 F L 97.1 F L 96.5 F L Pulse Rate Pulse Rate [Right Pulse Oximeter] 55 L 57 L 58 L Respiratory Rate 16 16 16 Blood Pressure Blood Pressure [Le ft Arm] 109/95 H 118/76 107/60 Blood Pressure [Ri ght Arm] Pulse Oximetry 96 98 97 Oxygen Delivery Me thod Room Air Room Air Room Air Oxygen Flow Rate 04/13/22 14:00 04/13/22 14:30 04/13/22 15:26 Temperature 96.6 F L 96.6 F L 97.5 F L Pulse Rate Pulse Rate [Right Pulse Oximeter] 55 L 57 L 71 Respiratory Rate 16 16 16 Blood Pressure Blood Pressure [Le ft Arm] 133/76 139/89 143/57 H Blood Pressure [Ri ght Arm] Pulse Oximetry 98 99 98 Oxygen Delivery Me thod Room Air Room Air Room Air Oxygen Flow Rate 96.9 04/13/22 16:00 04/13/22 16:47 04/13/22 17:00 Temperature 97.7 F 98.3 F Pulse Rate Pulse Rate [Right Pulse Oximeter] 57 L 56 L Respiratory Rate 16 16 16 Blood Pressure Blood Pressure [Le ft Arm] 153/74 H Blood Pressure [Ri ght Arm] 153/101 H Pulse Oximetry 92 96 Oxygen Delivery Me thod Room Air Room Air Oxygen Flow Rate 04/13/22 18:00 04/13/22 19:00 04/13/22 19:45 Temperature 98.6 F 98.1 F 98.1 F Pulse Rate Pulse Rate [Right Pulse Oximeter] 73 73 67 Respiratory Rate 16 16 16 Blood Pressure Blood Pressure [Le ft Arm] 156/74 H Blood Pressure [Ri ght Arm] 182/120 H 187/87 H Pulse Oximetry 95 95 95 Oxygen Delivery Me thod Room Air Room Air Room Air Oxygen Flow Rate 04/13/22 22:43 04/13/22 23:00 04/14/22 03:00 Temperature 98.3 F 98.4 F Pulse Rate Pulse Rate [Right Pulse Oximeter] 79 78 Respiratory Rate 16 16 16 Blood Pressure Blood Pressure [Le ft Arm] Blood Pressure [Ri ght Arm] 153/80 H 153/74 H Pulse Oximetry 95 96 Oxygen Delivery Me thod Room Air Room Air Oxygen Flow Rate 04/14/22 07:00 04/14/22 07:00 Temperature 98.3 F Pulse Rate Pulse Rate [Right Pulse Oximeter] 78 78 Respiratory Rate 18 18 Blood Pressure Blood Pressure [Le ft Arm] Blood Pressure [Ri ght Arm] 145/79 H Pulse Oximetry 97 Oxygen Delivery Me thod Room Air Oxygen Flow Rate DS: Data Data Completed and Pending Labs on day of discharge: Labs from last 24 hours 04/14/22 04/14/22 06:31 06:31 WBC 13.24 H RBC 3.57 L Hgb 11.2 L Hct 33.8 MCV 95 MCH 31 MCHC 33 RDW Coeff of Phu 13.5 Plt Count 354 Neut % (Auto) 77.9 H Lymph % (Auto) 16.1 L [place] % (Auto) 5.7 Eos % (Auto) 0.0 Baso % (Auto) 0.1 Neut # (Auto) 10.30 H Lymph # (Auto) 2.10 [place] # (Auto) 0.80 Eos # (Auto) 0.00 Baso # (Auto) 0.00 Abs Immat Gran (auto) 0.03 Sodium 135 Potassium 4.3 BUN 17 Creatinine 0.7 Estimated Creat Clear 79.79 Estimated GFR 101 Discharge Plan Discharge Disposition: Home, Self-Care Discharging Surgeon: Brian Bennett Follow-Up Appointment: 1 week postop with [facility] Prescriptions: New sennosides-docusate sodium [Senna-S] 8.6-50 mg tablet 1 - 4 tab-cap PO BID PRN (Reason: constipation) Qty: 60 0RF Rx Instructions: Hold medication if experiencing loose stools. aspirin 81 mg tablet,delayed release (DR/EC) 81 mg PO BID Qty: 60 0RF Rx Instructions: Medication to help prevent blood clots postoperatively; take TWICE daily. celecoxib 100 mg capsule 100 mg PO BID Qty: 60 0RF acetaminophen 500 mg capsule 500 - 1,000 mg PO Q6H MDD 4000mg PRNQty: 100 0RF oxycodone 5 mg tablet 2.5 - 5 mg PO Q4-6H MDD 6 PRN (Reason: pain) Qty: 42 0RF Rx Instructions: Take as needed for postop pain: 2.5mg mild pain, 5mg moderate-severe pain; wean as tolerated. Continued cholecalciferol (vitamin D3) 25 mcg (1,000 unit) capsule 25 mcg PO DAILY loratadine [Claritin] 10 mg tablet 10 mg PO DAILY magnesium oxide 400 mg magnesium capsule 400 mg PO DAILY multivitamin [Daily Multi-Vitamin] Tablet 1 tab PO DAILY Activity Level: Activity as Tolerated, Weight Bearing as Tolerated, Use Cane and Use Walker Activity Detail: Wound: ?Do not remove original dressing; we will remove this at first postop visit in 1 week. Only remove dressing if integrity is in question. ?No immersing wound in water; showering okay; light scrub with your hand and body soap, rinse, dab dry ?Sutures are under the skin, will dissolve; allow surgical glue to come off naturally; do not scrub the wound or apply ointments/lotions ?Call our office with any redness that streaks, excessive drainage from the wound, or wound gapping. Ice/Elevate: ?Ice as needed for swelling and discomfort (cryocuff or ice pack); elevate frequently above the heart CONNIE socks: ?Wear for 1 month, remove for 1 hour 3 times per day ?These are frustrating to take on/off, but are important for blood clot prevention for 1 month after surgery Blood Clot Prevention (DVT): ?Medication: 81 mg aspirin by mouth twice daily (1 month) Driving: ?Do not drive while taking narcotic pain medication ?Anticipate 4-6 weeks no driving if operative leg is driving leg Dental: ?No elective dental work for 6 months post-op. If there is an urgent/emergent dental need, contact our office for an antibiotic prescription. Smoking/Alcohol: ?Do not smoke; do no drink alcohol especially when taking postoperative oral narcotic medication Seek Care from you Primary Care Provider if you experience the following issues in the postoperative phase and beyond: ?Bacterial infections such as: pneumonia, bacterial skin infection (cellulitis), UTI, high fever, chills unrelated to the operative body part - call your primary care physician urgently for treatment in hopes to protect your health and the metal implant. Referrals: ?PT, OT per patient preference - evaluate treat total knee arthroplasty protocol (gait training, ROM, ADLs) Follow up: ?Ortho surgeon follow-up in 6 weeks; repeat radiographs three views operative knee ?[facility] visit in 1 week *If there are any acute concerns regarding your surgery, please call our orthopedic clinic ([phone]) Discharge Diet: Regular Patient Instructions: Surgical Site Infections (DC) Forms: Work/Release Restrictions Follow-up: Provider,Not a Local [Primary Care Provider] - Greg Feldman PA-C [Physician Commissions Analyst] - 04/23/22 9:50 am ([facility]. [phone]) Discharge Orders: Discharge Order (Routine); Ordered 04/14/22 Ordered By: Greg Feldman
[2022-04-14 11:00] VITALS: BP 161/80; PULSE 63; RESP 18; TEMP 36.6; O2SAT 95
[2022-04-14] MEDS: ONDANSETRON 2 MG/ML inj 4 MG IVP (11:02)
--- NOTE | 2022-04-14 13:38 | PC.NURSE ---
Addendum entered by Ignacio Preciado RN 04/14/22 13:54: IV cannula removed prior to discharge and was intact Original Note: Patient's discharge instructions given at 1210 and she demonstrated understanding of the discharge information including medication , home management of condition and follow up care. Prior to the discharge, OT/PT visited patient. Patient complained of having pain of 9/10 and Oxycodone 10mg was given as well as Ondansentron 4mg for nausea and vomiting. V/S were stable prior to discharge except Bp which was 161/80. Patient and helped to pack up their belongings and accompanied by a assistant hvac mechanic by wheelchair. Discharge paperwork signed by patient and nurse.
== END 2022-04-14 12:10 | disposition home or self-care (01) ==
LOC: OR 07:07 → MEDSURG 07:09
PROVIDERS: Visit Provider Orthopaedic Surgery Sports Medicine
PROC: (CPT 27447; principal; 2022-04-13 09:15)
DX: M17.11 Unilateral primary osteoarthritis, right knee (principal); Z68.38 Body mass index [BMI] 38.0-38.9, adult; E66.9 Obesity, unspecified
CPT/HCPCS: 27447; 01402; 36415; 64447; 64454; 73560; 76942; 82565; 84132; 84295; 84520; 85025; 97110; 97116; 97161; 97165; 97530; A9153; A9270; C1776; J0690; J1100; J1170; J2250; J2405; J2704; J2795; J3010; J7120

== ENCOUNTER 2022-05-14 15:45 | Outpatient (RCR) | payer BC, SELFPAY | END 2022-05-15 09:21 | disposition home or self-care (01) | PROVIDERS: Visit Provider Orthopaedic Surgery Sports Medicine | DX: M25.561 Pain in right knee (principal); M17.11 Unilateral primary osteoarthritis, right knee; Z96.651 Presence of right artificial knee joint; Z51.89 Encounter for other specified aftercare; M62.81 Muscle weakness (generalized) | CPT/HCPCS: 97110; 97116; 97140; 97161; 97164 ==